=== PATIENT | male | born 1985 | race Caucasian/White ===

== ENCOUNTER 2016-10-06 14:05 | Emergency (ER) | payer SELFPAY ==
--- NOTE | ~2016-10-06 | ER ---
PATIENT'S NAME: PEGGY LYNN [facility] AGE: 31 Y [address] ROOM: [place] [address] LOCATION: [facility] ADMIT DATE: 10/06/2016 ER/Outpatient Report DISCHARGE DATE: 10/06/2016 FAMILY PHYSICIAN: PHYSICIAN, NO ATTENDING PHYSICIAN: Shivam Covarrubias Admission date and time documented in the medical record. I saw the patient at 1415 hours. CHIEF COMPLAINT: Right chest pain, difficulty breathing. HISTORY OF PRESENT ILLNESS: The patient is a 31-year-old male, who over the past 2 hours has had some difficulty breathing. Short of breath. Hurts in his right chest when he takes a deep breath or moves just right. Denies any fever, chills, or sweats. Does have a cough nonproductive. Does smoke cigarettes. No lightheadedness, dizziness, syncope, or near syncope. No fall or trauma. No headache, eyes, ears, nose, throat, neck, or spine pain. The patient has had a cough, that is nonproductive with past 2 to 3 weeks. He is on the phone, talking to a family member, and he got short of breath acutely. This happened about 2 hours prior to admission to the emergency room. No chills, sweats, or fever. He had some lightheadedness earlier but not today. No abdominal pain, nausea, vomiting, or diarrhea. No urinary symptoms. No joint or muscle swelling, redness, or pain. No skin eruptions or rash. No history of neuro changes, psych issues, or endocrine problems. HOME MEDICATIONS: None. ALLERGIES: NONE. SOCIAL HISTORY: The patient smokes a pack of cigarettes per day. Does use marijuana daily. Nondrinker. SIGNIFICANT PAST MEDICAL HISTORY: Tobacco and marijuana abuse, otherwise negative. OPERATIONS: The patient had a collapsed lung and had chest tube, leg surgery. REVIEW OF SYSTEMS: All systems reviewed by me are negative with the exception of those discussed PATIENT'S NAME: PEGGY LYNN [facility] AGE: 31 Y [address] ROOM: [place] [address] LOCATION: [facility] ADMIT DATE: 10/06/2016 ER/Outpatient Report DISCHARGE DATE: 10/06/2016 FAMILY PHYSICIAN: PHYSICIAN, NO ATTENDING PHYSICIAN: Marci,Shivam D in the history of present illness. PHYSICAL EXAMINATION: VITAL SIGNS: Temperature 98.7 tympanic, pulse 84, respirations 20, blood pressure 137/81, O2 saturation on room air is 97%. HEAD: Normocephalic. EYES, EARS, NOSE, THROAT: Clear. Mucous membranes moist. Teeth and jaw intact. NECK: No nuchal rigidity. No thyromegaly or cervical adenopathy. No tenderness. SPINE: Negative. LUNGS: Clear. No rales, rhonchi, or wheezes. Does have pain with deep inspiration. No tenderness to palpation of the anterior chest wall. HEART: Regular. Pulses are palpable. ABDOMEN: Soft, nontender. Good bowel tones. No organomegaly or abnormal mass palpable. EXTREMITIES: Intact. NEUROVASCULAR: Intact. SKIN: Clear. LABORATORY DATA AND X-RAYS: Chest x-ray showed no acute infiltrate. We will review x-ray with the radiologist. Laboratory: CRP was 1.25. Thyroid was normal. ProBNP was normal at 45. CMS was normal except for low glucose of 67, magnesium 1.8. CPK was 198, CK-MB and troponin were normal. White count was 8700, 54 segs, 35 lymphs, 6 monos, 4 eos, 1 baso, hemoglobin was 14.1 with hematocrit 42.5, platelet count was 201,000. Sedimentation rate was elevated 21. PTT was 25, pro-time was 11, with an INR 1.0. D-dimer was 0.64. EKG showed sinus rhythm. No acute ST elevation, ischemic change, or arrhythmia. EMERGENCY DEPARTMENT COURSE: With D-dimer being slightly elevated, I did do a CT scan of the chest with PE protocol. I gave the patient 1 L normal saline prior to going to CT. I also gave him morphine IV for pain. CT scan showed no pulmonary embolism. He had some right pleural nodular density consolidation with a right perihilar adenopathy. The radiologist read this and thought that this probably was infectious with some inflammatory change. IMPRESSION: 1. Pneumonia with right pleural nodular density consolidation with right perihilar adenopathy. 2. Tobacco abuse. PATIENT'S NAME: PEGGY LYNN [facility] AGE: 31 Y [address] ROOM: [place] [address] LOCATION: ED ADMIT DATE: 10/06/2016 ER/Outpatient Report DISCHARGE DATE: 10/06/2016 FAMILY PHYSICIAN: , MARIELENA ATTENDING PHYSICIAN: Shivam Covarrubias PLAN: The patient was given Levaquin 750 mg IV in the emergency room. He was given morphine IV for pain. Four baby aspirins orally. Did give him IV normal saline, fluids. Gave him Decadron 10 mg IM in the emergency department. Dismissed home. Observation. Activity as tolerated. Fluids and diet as tolerated. Stop smoking. Tylenol or ibuprofen 2 every 4 to 6 hours as needed for fever; Levaquin 500 mg once a day for 8 days; [place] 7.5/325 as needed for pain, #24; albuterol oral inhaler with AeroChamber 2 puffs 30 seconds apart 4 times a day and p.r.n. Follow up with personal physician in 7 to 10 days for followup exam. Discussion ensued with the patient concerning my findings and recommendations, he understands. MD ZACHARY BOTELLO/modl /[id number] d: 10/06/[id number] t: 10/07/16 1815, OUTPATIENT REPORT
[2016-10-06 14:45] LABS: HEMATOCRIT 42.5 % (37.0-53.0); HEMOGLOBIN 14.4 g/dL (12.0-17.0); MCH 30.2 pg (27.0-34.0); MCHC 33.9 gm/dL (32.0-36.5); MCV 89.1 fl (83.0-98.0); PLATELET COUNT 201 K/uL (150-450); RBC 4.77 M/uL (4.00-6.00); RDW-CV 12.7 % (11.9-14.6); WBC 8.7 K/uL (4.0-11.0)
[2016-10-06 14:52] LABS: PTT 25 SECONDS (25-32)
[2016-10-06 15:14] LABS: ABSOLUTE NEUTROPHIL CT (ANC) 4.7 K/uL (1.4-9.0); LYMPHOCYTE % 35 %; MONOCYTE # 0.5 K/uL (0.0-1.0); SEGMENTED NEUTROPHIL # 4.7 K/uL (1.4-9.0); SEGMENTED NEUTROPHIL % 54 %
[2016-10-06 16:13] LABS: ALBUMIN 3.5 gm/dL (3.5-5.0); ALK PHOS 112 IU/L (33-138); ALT 25 IU/L (12-78); BLOOD UREA NITROGEN 6 mg/dL (6-24); CALCIUM 8.7 mg/dL (8.5-10.5); CHLORIDE 108 mMol/L (96-110); CO2 26 mMol/L (22-32); CPK 198 IU/L (35-332); CREATININE 0.9 mg/dL (0.6-1.3); ESTIMATED GFR (MDRD EQUATION) > 60; SODIUM 142 mMol/L (135-145); TOTAL BILIRUBIN 0.3 mg/dL (0.0-1.5)
[2016-10-06 16:20] LABS: AST 25 IU/L (10-40); MAGNESIUM 1.8 mg/dL (1.3-2.6)
== END 2016-10-06 19:22 | disposition disaster alternative care site (69) ==
LOC: GMED 14:05
PROVIDERS: Emergency Medicine
DX: J18.9 Pneumonia, unspecified organism (principal); F17.210 Nicotine dependence, cigarettes, uncomplicated
CPT/HCPCS: J1956; J2270; J7030; J7050; Q9967